=== PATIENT | female | born 1985 | race Caucasian/White ===

== ENCOUNTER 2018-07-18 23:32 | Inpatient (IN) | payer OTHER ==
[~2018-07-18] VITALS: Ht 162.6 cm; Wt 63.5 kg
[2018-07-19] VITALS: BP 126/74
--- NOTE | 2018-07-19 | NUR ---
MS RN NOTES PATIENT IS A 32 YEAR OLD, DIRECT ADMIT FROM [facility], TRANSPORTED VIA GURNEY, ALERT ORIENTED X 4, NO RESPIRATORY DISTRESS NOTED, BREATHING EVEN AND UNLABORED, ORIENTED TO UNIT AND USE OF CALL LIGHT, IV ACCESS ON HER LEFT AC G#20 DRY, SECURED AND INTACT. INITIAL ASSESSMENT DONE, ALL NEEDS ATTENDED, ALL SAFETY MEASURES IN PLACED, ON NPO, KEEP COMFORTABLE, WILL MONITOR ACCORDINGLY.
[2018-07-19] MEDS ORDERED: ONDANSETRON HCL/PF 4 MG/2 ML VIAL IVP PRN (00:30)
[2018-07-19] MEDS ORDERED: Z GUARD REMEDY 2 OZ OINT TP PRN (00:30)
[2018-07-19] MEDS ORDERED: MORPHINE SULFATE INJ 2 MG/ML DISP.SYRIN IV PRN (00:30)
[2018-07-19] MEDS ORDERED: ACETAMINOPHEN 325 MG TABLET PO PRN (00:30)
[2018-07-19] MEDS ORDERED: IV NS 0.9% 1,000 ML IV PRN (01:00)
[2018-07-19] MEDS ORDERED: PIPERACILLIN /TAZOBACTAM 3.375 G in IV D5W 50 ML IV ONE (04:00)
[2018-07-19] MEDS ORDERED: PIPERACILLIN /TAZOBACTAM 3.375 G VIAL IV ONE (04:50)
--- NOTE | 2018-07-19 06:54 | NUR ---
RN NOTES ALL NEEDS ATTENDED AND MET, PATIENT COMPLAINTS OF RIGHT UPPER QUADRANT / ABDOMINAL PAIN BUT TOLERABLE, DID NOT ASK FOR PAIN MEDICATION, RELIEVED BY CHANGING POSITION. KEPT COMFORTABLE, PATIENT IS ON HER 3ND DAY MENSTRUAL PERIOD, SAFETY MEASURES IN PLACED, CALL LIGHT WITHIN EASY REACH, WILL ENDORSE TO AM NURSE FOR CONTINUITY OF CARE.
--- NOTE | 2018-07-19 07:05 | NUR ---
MS RN NOTES PATIENT IN BED ALERT ORIENTED X 4. NO ACUTE DISTRESS NOTED, BREATHING UNLABORED. NO SOB NOTED. IV ACCESS PATENT AND INTACT, NO REDNESS OR SWELLING NOTED. SAFETY MEASURES IN PLACE. CALL LIGHT WITHIN REACH. WILL CONTINUE TO MONITOR ACCORDINGLY.
[2018-07-19 08:00] VITALS: BP 117/85
[2018-07-19] MEDS ORDERED: METH5TAB70 PO (08:16)
[2018-07-19 08:44] LABS: ALBUMIN 3.2 g/dL (3.4-5.0); BILIRUBIN,TOTAL 0.5 mg/dL (0.2-1.0); CALCIUM, SERUM 9.2 mg/dL (8.5-10.1); CREATININE 0.6 mg/dL (0.6-1.3); MAGNESIUM 1.9 mg/dL (1.8-2.4); PHOSPHORUS 4.6 mg/dL (2.5-4.9); POTASSIUM 4.1 mmol/L (3.5-5.1); TOTAL PROTEIN, SERUM 6.8 g/dL (6.4-8.2)
[2018-07-19] MEDS ORDERED: PANTOPRAZOLE 40 MG VIAL IV SCH ×2 (09:00)
[2018-07-19] MEDS ORDERED: FAMOTIDINE/PF INJ 20 MG/2 ML VIAL IV SCH (09:00)
[2018-07-19 09:11] LABS: BASOPHILS % (AUTO) 0.4 % (0.0-2.0); EOSINOPHILS % (AUTO) 3.6 % (0.0-6.0); HEMATOCRIT 40 % (33-45); HEMOGLOBIN 13.8 g/dL (11.5-14.8); LYMPHOCYTES # (AUTO) 1.4 /CMM (0.8-4.8); LYMPHOCYTES % (AUTO) 36.4 % (20.0-44.0); MEAN CORPUSCULAR HGB CONC 34 g/dl (31.0-36.0); MEAN CORPUSCULAR VOLUME 87 fL (82-100); MONOCYTES # (AUTO) 0.5 /CMM (0.1-1.30); MONOCYTES % (AUTO) 11.8 % (2.0-12.0); NEUTROPHILS # (AUTO) 1.9 /CMM (1.8-8.9); NEUTROPHILS % (AUTO) 47.8 % (43.0-81.0); PLATELET COUNT (AUTO) 266 /CMM (150-450); RED BLOOD CELL COUNT(AUTO) 4.62 MIL/uL (4.0-5.2); WHITE BLOOD COUNT (AUTO) 3.9 K/uL (4.3-11.0)
[2018-07-19] MEDS: PIPERACILLIN /TAZOBACTAM 3.375 G in IV D5W 100 ML IV SCH ×2 (09:37→17:31)
[2018-07-19] MEDS ORDERED: PIPERACILLIN /TAZOBACTAM 3.375 G in IV D5W 50 ML IV SCH (10:00)
[2018-07-19 16:00] VITALS: BP 117/72
--- NOTE | 2018-07-19 19:00 | NUR ---
MS RN NOTES PATIENT IN BED ALERT ORIENTED X 4. NO ACUTE DISTRESS NOTED, BREATHING UNLABORED. NO SOB NOTED. IV ACCESS PATENT AND INTACT, NO REDNESS OR SWELLING NOTED. DUE MEDICATIONS GIVEN, NO ASE NOTED. NEEDS ATTENDED AND SAFETY MEASURES IN PLACE. SAFETY MEASURES IN PLACE. CALL LIGHT WITHIN REACH. ENDORSE TO NIGHT NURSE FOR CONTINUITY OF CARE.
--- NOTE | 2018-07-19 19:05 | NUR ---
MS RN OPENING NOTES: RECEIVED PT ON ROOM AIR AND IS TOLERATING WELL. NO SOB NOTED. NO S/S OF DISTRESS. PT HAS IV ON L AC #20G AND IS PATENT AND INTACT. PT BEING INFUSED WITH IV NS AT 75ML/HR. PT NPO AT THIS TIME. PT AWAITING FOR HIDA SCAN TO BE DONE. BED KEPT IN LOW, LOCKED POSITION, AND SIDE RAILS X 2UP. WILL CONTINUE TO MONITOR PT.
--- NOTE | 2018-07-19 19:08 | NUR ---
MS RN NOTES: PT WENT TO RADIOLOGY FOR HIDA ACCOMPANIED WITH TECH.
--- NOTE | 2018-07-19 20:34 | NUR ---
MS RN NOTES: PT STILL IN RADIOLOGY FOR HIDA.
--- NOTE | 2018-07-19 20:49 | NUR ---
MS RN NOTES: PT BACK FROM RADIOLOGY.
--- NOTE | 2018-07-19 20:59 | NUR ---
MS RN NOTES: PT WANTS AMA FORM AND WANTS TO SIGN. PT SAYING THAT SHE FEELS FINE AND THAT SHE UNDERSTANDS THE RISKS OF LEAVING THE HOSPITAL. PT SAYING SHE IS NOT IN ANY PAIN AND SHE FEELS BETTER AND WILL FOLLOW UP WITH HER DOCTOR. EXPLAINED TO PT THAT SHE HAS SCHEDULED PEPCID AND IV FLUIDS AND ABX FOR TONIGHT. PT STILL REFUSING TO STAY AND WOULD LIKE TO SIGN THE FORM. PT SIGNED FORM. IV ON L AC REMOVED. WRIST BAND REMOVED WELL. PT LEFT WITH SON. PT ALSO SIGNED BELONGINGS FORM AND LEFT.
[2018-07-19 21:01] VITALS: BP 127/64
--- NOTE | 2018-07-19 21:07 | NUR ---
NM:HIDA SCAN WAS COMPLETED. TECH:RB
--- NOTE | 2018-07-19 21:20 | NUR ---
MS RN NOTES: INCIDENT FORM COMPLETED.
--- NOTE | 2018-07-19 23:53 | NUR ---
MS RN NOTES: OLIVIA CHAIDEZ MADE AWARE.
== END 2018-07-19 22:17 | disposition left against medical advice (07) ==
LOC: MEDSG2 23:32
PROVIDERS: ADMIT Nurse Practitioner Acute Care; ATTEND Nurse Practitioner Acute Care
DX: K80.20 Calculus of gallbladder without cholecystitis without obstruction (principal)
CPT/HCPCS: 36415; 78226; 80053-TC; 80061-TC; 83735-TC; 84100-TC; 84703-TC; 85025-TC; 85730-TC; 87081-TC; A9537; G0378; J2543; J3490; J7030; J7060